=== PATIENT | male | born 1980 | race Caucasian/White ===

== ENCOUNTER 2023-01-10 01:20 | Emergency (ER) | payer SELFPAY ==
[2023-01-10 01:30] VITALS: BP 140/80; PULSE 69; RESP 17; TEMP 97.5; BMI 37.5
[2023-01-10] MEDS ORDERED: LORazepam 1 MG TABLET PO ONE (01:45)
[2023-01-10] MEDS ORDERED: LORazepam 2 MG TABLET PO ONE (01:45)
[2023-01-10] MEDS ORDERED: LORazepam 0.5 MG TABLET ONE (02:16)
[2023-01-10 03:45] LABS: POTASSIUM 4.1 mmol/L (3.5-5.1)
[2023-01-10 03:47] LABS: ALBUMIN 3.9 g/dl (3.4-5.0); BLOOD UREA NITROGEN 14.4 mg/dL (7-18); CALCIUM 9.3 mg/dL (8.5-10.1)
[2023-01-10 03:50] LABS: CREATININE 0.8 mg/dL (0.55-1.3)
[2023-01-10 03:52] LABS: BILIRUBIN,TOTAL 0.4 mg/dL (0.2-1); TOT PROT 8.1 g/dl (6.4-8.2)
[2023-01-10 03:55] LABS: N-TERMINAL BNP 11.5 pg/ml (5-125)
[2023-01-10 04:02] LABS: BASO % 0.4 % (0-2.0); EOS % 5.8 % (0-4.5); HEMATOCRIT 47.8 % (35.4-49); HEMOGLOBIN 16.8 GM/dL (11.7-16.9); LYMPH % 27.7 % (8-40); MCH 30.9 pg (25.7-33.7); MCHC 35.2 g/dl (32.0-35.9); MEAN CELL VOLUME 87.9 fl (80-96); MEAN PLT VOLUME 8.6 fl (7.5-11.1); MONO % 8.8 % (3.8-10.2); NEUT % 57.3 % (42.8-82.8); PLATELET COUNT 243 10^3/uL (134-434); RBC 5.44 M/mm3 (4.00-5.60); RDW 13.6 % (11.9-15.9); WHITE BLOOD COUNT 8.4 K/mm3 (4.0-10.0)
== END 2023-01-10 05:39 | disposition home or self-care (01) ==
LOC: FER 01:20
DX: F41.9 Anxiety disorder, unspecified (principal); F43.10 Post-traumatic stress disorder, unspecified; R94.31 Abnormal electrocardiogram [ECG] [EKG]
CPT/HCPCS: 36415; 80053; 83880; 84443; 84484; 85025; 93005; 93010; 99284-25